=== PATIENT | male | born 1980 | race Caucasian/White ===

== ENCOUNTER 2018-11-03 17:31 | Emergency (ER) | payer OTHER ==
[~2018-11-03] VITALS: Ht 165.1 cm; Wt 86.4 kg
[2018-11-03 20:20] VITALS: BP 123/75
== END 2018-11-03 20:53 | disposition home or self-care (01) ==
LOC: EMS 17:34
DX: F10.10 Alcohol abuse, uncomplicated (principal); R03.0 Elevated blood-pressure reading, without diagnosis of hypertension; F19.90 Other psychoactive substance use, unspecified, uncomplicated; Z51.81 Encounter for therapeutic drug level monitoring